=== PATIENT | female | born 1975 | race Caucasian/White ===

== ENCOUNTER 2021-03-28 16:59 | Emergency (ER) | payer SELFPAY ==
[~2021-03-28] VITALS: Ht 170.1 cm; Wt 70.0 kg
[2021-03-28] MEDS ORDERED: morphine INJ 10 MG/ML 1ML (SYR OR VIAL) ONE (17:16)
[2021-03-28] MEDS ORDERED: TETANUS,DIPTH,PERTUSS P/F (BOOSTRIX) 0.5 ML VIAL IM ONE ×2 (17:30→20:20)
--- NOTE | 2021-03-28 18:14 | Diagnostic Imaging Report ---
CLINICAL HISTORY: Slammed finger. COMPARISON: None. TECHNIQUE: 4 views of the left hand. FINDINGS: Fracture is seen involving the distal aspect of the left 4th finger. The remainder of the left hand is unremarkable without acute fracture. Alignment is anatomic. There is soft tissue edema involving the distal aspect of the left 4th finger. IMPRESSION: 1. Tuft fracture involving the left 4th finger. Dictated by: Dictated on workstation # [id number]
[2021-03-28] MEDS ORDERED: BUPIVACAINE 0.5% 30 ML (SENSORCAINE) VIAL INJ ONE (18:30)
[2021-03-28] MEDS ORDERED: RX-TRIMETH/SULFA. 160-800 MG (BACTRIM DS) TAB PPK#2 PO STA (20:12)
[2021-03-28] MEDS ORDERED: SULF1TAB34 PO (20:22)
[2021-03-28] MEDS ORDERED: ACHD5005 PO (20:22)
--- NOTE | 2021-03-28 20:22 | ED Upper Extremity ---
General Chief Complaint: Skin/Wound Problems Stated Complaint: LT RING FINGER LAC Nursing Triage Note: Patient presents to the ED with c/o left index finger injury. She reports she closed her left index finger in a storage unit door causing the injury. Source: patient Exam Limitations: no limitations History of Present Illness Date Seen by Provider: Mar 28, 2021 Time Seen by Provider: 17:05 Initial Comments This 45-year-old woman presents to the emergency room with an avulsion of the left fourth finger tip which included an avulsion of the nail sparing the proxim al nail matrix (majority of the germinal matrix remains). Injury occurred a few hours prior when she slammed her finger in a storage unit door. Bleeding is controlled at this time. She is not up-to-date on her tetanus immunizations. Patient presents with numerous other body bruises and skin injuries. She reports these are from moving, a trip and fall, and an older dog bite. She denies any abuse. She is not from this area and is in [place] helping her boyfriend clear out his mother's belongings. She was alone when the incident happened and she found a stranger to bring her to the hospital. Allergies and Home Medications Allergies Coded Allergies: Penicillins (Verified Allergy, Unknown, 03/28/21) Patient Home Medication List Home Medication List Reviewed: Yes Hydrocodone/Acetaminophen (Hydrocodone-Acetamin 5-325 mg) 1 Each Tablet, 1 TAB PO Q4H PRN for PAIN-MODERATE (5-7) Prescribed by: SARAN MARTIN on 03/28/212021 Sulfamethoxazole/Trimethoprim (Bactrim 400-80 mg Tablet) 1 Each Tablet, 1 EACH PO BID Prescribed by: SARAN MARTIN on 03/28/212021 Review of Systems Constitutional: no symptoms reported EENTM: no symptoms reported Respiratory: no symptoms reported Cardiovascular: no symptoms reported Gastrointestinal: no symptoms reported Genitourinary: no symptoms reported : No Musculoskeletal: see HPI Skin: see HPI Psychiatric/Neurological: Anxiety Past Lqwfvzl-Bzkkrm-Jyejgo Hx Patient Social History Tobacco Use?: Yes Tobacco type used: Cigarettes Smoking Status: Current Everyday Smoker Use of E-Cig and/or Vaping dev: No Substance use?: No Alcohol Use?: No Pt feels they are or have been: No Past Medical History Surgeries: No Respiratory: No Cardiac: No Neurological: No Reproductive Disorders: No Gastrointestinal: No Musculoskeletal: No Endocrine: No HEENT: No Cancer: No Psychosocial: No Physical Exam Vital Signs Vital Signs - First Documented 03/28/21 17:20 Temp 36.1 Pulse 102 Resp 20 B/P (MAP) 157/97 (117) Pulse Ox 97 O2 Delivery Room Air Capillary Refill : Height, Weight, BMI Height: '" Weight: lbs. oz. kg; 24.00 BMI Method: General Appearance: WD/WN, moderate distress HEENT: PERRL/EOMI, normal ENT inspection Neck: normal inspection Cardiovascular: regular rate, rhythm, no edema Respiratory: lungs clear, no respiratory distress Elbow/Forearm: normal inspection, non-tender, no evidence of injury, normal ROM, Left Wrist: Yes normal inspection, Yes non-tender, Yes no evidence of injury, Yes normal ROM Hand: Left (Injury appears isolated to the distal ring finger. There is nearly complete avulsion of the nail with only few fragments remaining. There appears to be exposed tuft bone. There is loss of the fingertip skin and subcutaneous tissue. 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 Base of the finger was scrubbed with alcohol wipes. Approximately 4 mL of 1% lidocaine was injected to perform a digital block. The wound was scrubbed with saline and chlorhexidine and rinsed with saline. It was closely examined for foreign bodies. X-rays were obtained. Consultation with Dr. Royal (orthopedics) was sought. Patient was advised to have the distal phalanx trimmed down and the soft tissue sewn over. Informed consent was obtained and we proceeded with the procedure. The base of the finger was again cleaned with alcohol wipes. A 2:1 Marcaine/lidocaine mixture was then used to repeat the nerve block. Approximately 3 mL were used. Excellent anesthesia was achieved. Wound was again briefly scrubbed with saline and chlorhexidine and rinsed with saline. A finger tourniquet was applied. Skin was prepped with Betadine. Rongeur bone cutter was then used to trim down the distal phalanx and to remove bone fragments still attached to the soft tissue. Once a satisfactory depth of bone removal was achieved, excess subcutaneous tissue was trimmed away. The fingertip was then closed over using 4-0 Polysorb suture. After the initial approximation there was difficulty with bleeding. 3 additional sutures were applied including a pararl-[id number] suture over the lateral edge where bleeding was not controlled. Ultimately 6 sutures were applied and hemostasis was achieved. Wound was dressed with Xeroform gauze followed by tube gauze. An AlumaFoam splint was applied. Progress/Results/Core Measures Results/Orders My Orders Orders - SARAN DURAN MD Morphine Injection (Morphine Injection (03/28/21 17:16) Dipht,Pertuss(Acell),Tet Adult (Boostrix (03/28/21 17:30) Finger(S) (03/28/21 17:29) Bupivacaine 0.5% Injection (Sensorcaine (03/28/21 18:30) Rx-Trimeth/Sulfameth Ds Tab (Rx-Bactrim/ (03/28/21 20:12) Rx-Hydrocodone/Apap 5-325 Mg (Rx-Vicodin (03/28/21 20:15) Dipht,Pertuss(Acell),Tet Adult (Boostrix (03/28/21 20:20) Medications Given in ED Vital Signs/I&O Blood Pressure Mean: 117 Progress Progress Note : Progress Note Patient was treated with a morphine injection for general pain control. A digital block was then performed with lidocaine. Tetanus immunization was provided. X-rays were obtained which demonstrated the tuft fracture. No additional foreign bodies were identified. Wound was scrubbed with saline and chlorhexidine and then rinsed with saline. I consulted to Dr. Royal by phone. He is suggesting trimming down the distal phalanx with Rongeurs and sewing the wound over. The bone is too exposed at this time to leave open. Options were discussed with the patient. She was offered a dressing and outpatient follow-up with an orthopedist or surgeon at a later time versus performing the alteration in repair in the ER. Due to her social circumstances and need to travel, she elects to have the procedure done here. The finger was reblocked with a mixture of lidocaine and Marcaine. The bone was trimmed down and sewn over. Wound was dressed with Xeroform, tube gauze, and an AlumaFoam splint. Strict instructions for reevaluation in 24 hours were given. Take-home packets of Bactrim and hydrocodone were dispensed. See discharge instructions.` Diagnostic Imaging Diagonstic Imaging: Xray Plain Films/CT/US/NM/MRI: other (Fingers) Comments Finger x-rays viewed by me and report reviewed. See report below: NAME: NELLA CALLE [facility] REC#: [id number] PT STATUS: REG ER : 1975 PHYSICIAN: SARAN DURAN MD ADMIT DATE: 03/28/21/ER FS Signed Date of Exam:03/28/21 FINGER(S) CLINICAL HISTORY: Slammed finger. COMPARISON: None. TECHNIQUE: 4 views of the left hand. FINDINGS: Fracture is seen involving the distal aspect of the left 4th finger. The remainder of the left hand is unremarkable without acute fracture. Alignment is anatomic. There is soft tissue edema involving the distal aspect of the left 4th finger. IMPRESSION: 1. Tuft fracture involving the left 4th finger. Dictated by: Dictated on workstation # [id number] Dict: 03/28/21 1801 Trans: 03/28/211815 [facility] [id number] Interpreted by: JAVON PRADO DO Electronically signed by: JAVON PRADO DO 03/28/211815 Departure Impression Primary Impression: Traumatic amputation of finger Qualified Codes: S68.119A - Complete traumatic metacarpophalangeal amputation of unspecified finger, initial encounter Disposition: HOME, SELF-CARE Condition: Improved Departure-Patient Inst. Decision time for Depature: 20:17 Patient Instructions: Amputation of the Finger or Fingertip Add. Discharge Instructions: Keep your wound clean, dry, and dressed until you follow-up for reexamination. You should follow-up within 24 hours to have the wound checked. You may follow- up in the [place] ER or a ER or clinical setting of your choice. Below is a contact number for Dr. ROYAL, orthopedic surgeon in [place], or his associate, Alex Acevedo in [place].. You may also follow-up with him if needed. You may use ibuprofen up to 600 mg every 6 hours as needed for pain. Add hydrocodone as prescribed for pain not controlled by ibuprofen. Keep your hand elevated to the level of your heart as much as possible. Call with questions or concerns. Return to care if you have worsening symptoms. Complete the entire course of antibiotics as prescribed. All discharge instructions reviewed with patient and/or family. Voiced understanding. Scripts Hydrocodone/Acetaminophen (Hydrocodone-Acetamin 5-325 mg) 1 Each Tablet 1 TAB PO Q4H PRN for PAIN-MODERATE (5-7), #10 TAB Prov: SARAN DURAN MD 03/28/21 Sulfamethoxazole/Trimethoprim (Bactrim 400-80 mg Tablet) 1 Each Tablet 1 EACH PO BID, #20 TAB Prov: SARAN DURAN MD 03/28/21 SARAN DURAN MD Mar 28, 2021 20:22
[2021-03-28 21:51] VITALS: BP 137/80
== END 2021-03-28 20:32 | disposition home or self-care (01) ==
LOC: ER FS 17:01
DX: S68.115A Complete traumatic metacarpophalangeal amputation of left ring finger, initial encounter (principal); F17.210 Nicotine dependence, cigarettes, uncomplicated; Z23 Encounter for immunization; W23.1XXA Caught, crushed, jammed, or pinched between stationary objects, initial encounter
CPT/HCPCS: 73140; 90471; 90715; 96372